=== PATIENT | female | born 1950 | race Caucasian/White ===

== ENCOUNTER 2016-12-02 14:23 | Emergency (ER) | payer OTHER, MEDICARE ==
[2016-12-02 14:51] VITALS: BP 135/81; PULSE 88; RESP 16; TEMP 97.5; O2SAT 97
--- NOTE | 2016-12-02 15:44 | UCPHY ---
H & P Time Seen by Provider: 12/02/16 15:23 Patient Type: Established HPI/ROS: This patient presents with a chief complaint of dizziness which she describes as a spinning sensation. She had 3 episodes yesterday and 2 today none of which lasted more than a minute. There was no associated nausea, vomiting, diplopia or tinnitus. She denies headache and has no symptoms currently. She does have a chronic postnasal drip which has been evaluated by ENT but this is not changed since her symptoms began. She has no URI symptoms and she denies any motor or sensory dysfunction. The patient has an intracranial stimulator for treatment of her Parkinson's disease. REVIEW OF SYSTEMS: Constitutional: Denies fever, malaise, Eyes: No diplopia or blurring ENT: Chronic postnasal drip denies sore throat, ear pain, tinnitus or diminished hearing Respiratory: Not addressed Cardiac: Not addressed Gastrointestinal: Denies nausea and vomiting Genitourinary: Not addressed Musculoskeletal: The patient had a normal carotid Doppler ultrasound done less than 1 month ago which was negative Skin: No rash Neurological: No headache Smoking Status: Never smoked Physical Exam: This is a well-developed well-nourished female who is in no acute distress. She is alert, oriented and lucid. She does have tremors consistent with Parkinson' s disease. GENERAL: Well-appearing, well-nourished and in no acute distress. HEAD: Atraumatic, normocephalic. EYES: Pupils equal round and reactive to light, extraocular movements intact, sclera anicteric, conjunctiva are normal. There is no nystagmus ENT: TMs normal, nares patent, oropharynx clear without exudates. Moist mucous membranes. NECK: Normal range of motion, supple without lymphadenopathy or JVD. HEART: Regular rate and rhythm EXTREMITIES: Normal range of motion, no pitting or edema. No clubbing or cyanosis. NEUROLOGICAL: Cranial nerves II through XII grossly intact. Normal speech, PSYCH: Normal mood, normal affect. SKIN: Warm, dry, normal turgor, no visible rashes or lesions. Constitutional: Initial Vital Signs Temperature (C) 36.4 C 12/02/16 14:47 Heart Rate 88 12/02/16 14:47 Respiratory Rate 16 12/02/16 14:47 Blood Pressure 135/81 H 12/02/16 14:47 O2 Sat (%) 97 12/02/16 14:47 O2 Delivery Mode Room Air Allergies/Adverse Reactions: corn [[place]] Allergy (Mild, Verified 12/02/16 14:51) gluten Allergy (Mild, Verified 12/02/16 14:51) lactose Allergy (Mild, Verified 12/02/16 14:51) Home Medications: Medication Instructions Recorded Carbidopa/Levodopa 25/100Mg 1 tab PO TID 07/24/15 [Sinemet 25/100 MG (*)] LORazepam [Ativan (*)] 1 mg PO QID 07/24/15 Citalopram 07/12/16 Meclizine HCl [Meclizine HCl 25 mg 25 mg PO QID PRN #10 tab 12/02/16 (RX,OTC)] Medical Decision Making Differential Diagnosis: Based on this patient's symptoms and lack of physical findings I believe that the patient has benign positional vertigo. There is nothing to suggest a central cause for her symptoms. I do not feel that laboratory studies or imaging would add additional useful information. Departure - Departure Disposition: Home, Routine, Self-Care Clinical Impression: Benign positional vertigo Condition: Good Instructions: Benign Paroxysmal Positional Vertigo (ED) Additional Instructions: If the symptoms become more frequent or if the duration is prolonged you should be re-evaluated. Referrals: Eneida Ernandez MD [Primary Care Provider] - As per Instructions Prescriptions: Meclizine HCl [Meclizine HCl 25 mg (RX,OTC)] 25 mg PO QID PRN #10 tab PRN Reason: Vertigo - PQRS PQRS Measurement: Not applicable
== END 2016-12-02 15:49 | disposition home or self-care (01) ==
LOC: CED 14:23
DX: H81.10 Benign paroxysmal vertigo, unspecified ear (principal); G20 Parkinson's disease
CPT/HCPCS: 99214-PO; G0463-PO

== ENCOUNTER 2017-06-07 02:51 | Emergency (ER) | payer OTHER, MEDICARE ==
[2017-06-07 03:03] VITALS: RESP 16
[2017-06-07] MEDS ORDERED: KETOROLAC 15 MG/1 ML SDV IVP ONE (03:44)
[2017-06-07] MEDS ORDERED: NS 1,000 ML IV ONE (03:44)
[2017-06-07] MEDS ORDERED: PROMETHAZINE HCL 25 MG/ML INJ IVP ONE (03:45)
--- NOTE | 2017-06-07 04:14 | EDPHY ---
H & P Stated Complaint: confusion Time Seen by Provider: 06/07/17 03:07 HPI/ROS: HPI The patient presents with an episode of confusion and headache which began at 2: 00 a.m. this morning when she got up to go to the bathroom. Her normally assist her because of her Parkinson's disease. He initially noticed that she had difficulty with removing her mouth guard which she sleeps with. Then, he began asking her some basic questions and it seemed that she was disoriented. This was associated with a left-sided headache which is frontal and throbbing in nature. This feels like her previous migraine. Her symptoms lasted for about 30 minutes and then began to resolve on their own. She is feeling better now and her reports that she is oriented and less confused. She is occasionally subheading the word asleep for other words, however does not have any further symptoms. She has a history of atypical migraine, and was admitted in June of 2015 for an identical presentation in which she had a headache associated with confusion. CT scan was performed and was unremarkable. Her symptoms resolved with migraine treatment.. REVIEW OF SYSTEMS Constitutional: No fever, no chills. Eyes: No discharge. ENT: No sore throat. Cardiovascular: No chest pain, no palpitations. Respiratory: No cough, no shortness of breath. Gastrointestinal: No abdominal pain, no vomiting. Genitourinary: No hematuria. Musculoskeletal: No back pain. Skin: No rashes. Neurological: Positive for headache. PMHx: Parkinson's disease with deep brain stimulator in place, history of migraine, Soc Hx: Lives at home with her PHYSICAL General Appearance: Alert, no distress Eyes: Pupils equal and round no pallor or injection ENT, Mouth: Mucous membranes moist Respiratory: There are no retractions, lungs are clear to auscultation Cardiovascular: Regular rate and rhythm Gastrointestinal: Abdomen is soft and non-tender, no masses, bowel sounds normal Neurological: A&O x3, cranial nerves 2-12 intact, 5/5 strength in upper and lower extremities which is symmetric, normal finger to nose testing, normal object naming, recall, speech is fluid Skin: Warm and dry, no rashes Musculoskeletal: Neck is supple non tender Extremities: symmetrical, full range of motion Psychiatric: Patient is oriented X 3, there is no agitation Source: Patient, Old records Exam Limitations: No limitations - Personal History Current Tetanus/Diphtheria Vaccine: No Current Tetanus Diphtheria and Acellular Pertussis (TDAP): No - Medical/Surgical History Hx Asthma: No Hx Chronic Respiratory Disease: No Hx Diabetes: No Hx Cardiac Disease: No Hx Renal Disease: No Hx Cirrhosis: No Hx Alcoholism: No Hx HIV/AIDS: No Hx Splenectomy or Spleen Trauma: No Other PMH: PCP S Daniel. Parkinsons. Deep brain stimulatiion. Anxiety. NO FLu vacc. Tetanus UTD - Social History Smoking Status: Never smoked Constitutional: Initial Vital Signs Temperature (C) 36.8 C 06/07/17 02:59 Heart Rate 92 06/07/17 02:59 Respiratory Rate 16 06/07/17 02:59 Blood Pressure 113/69 06/07/17 02:59 O2 Sat (%) 94 06/07/17 02:59 O2 Delivery Mode Room Air Allergies/Adverse Reactions: corn [[place]] Allergy (Mild, Verified 06/07/17 02:57) gluten Allergy (Mild, Verified 06/07/17 02:57) lactose Allergy (Mild, Verified 06/07/17 02:57) Home Medications: Medication Instructions Recorded Carbidopa/Levodopa 25/100Mg 1 tab PO TID 07/24/15 [Sinemet 25/100 MG (*)] LORazepam [Ativan (*)] 1 mg PO QID 07/24/15 Citalopram 07/12/16 Amantadine 06/07/17 Medical Decision Making Differential Diagnosis: This is a 67-year-old female with Parkinson's disease and history of migraines who presents after waking tonight with a headache and some disorientation which lasted for 30 minutes and is now almost resolved. She is still having a left- sided frontal throbbing headache. I have performed NIH stroke scale and it is 0. She has a history of atypical migraines with identical presentation. She was admitted to the hospital for this in 2014 and had a normal workup for any ischemia. I have considered TIA, however I feel this is unlikely given that she has a concomitant headache which is like her usual migraine. I feel she likely has atypical migraine. In the emergency room she was given IV fluids, Phenergan and Toradol. She had improvement in her headache and symptoms. She had no further confusion or any word-finding difficulties. She would like to be discharged home to rest and I feel this is reasonable. - Data Points Medications Given: Discontinued Medications Sodium Chloride (Ns) 1,000 mls @ 0 mls/hr IV ONCE ONE PRN Reason: Wide Open Stop: 06/07/17 03:45 Last Admin: 06/07/17 03:54 Dose: 1,000 mls Ketorolac Tromethamine (Toradol) 15 mg IVP EDNOW ONE Stop: 06/07/17 03:45 Last Admin: 06/07/17 03:55 Dose: 15 mg Promethazine HCl (Phenergan) 6.25 mg IVP ONCE ONE Stop: 06/07/17 03:46 Last Admin: 06/07/17 03:55 Dose: 6.25 mg Departure - Departure Disposition: Home, Routine, Self-Care Clinical Impression: Atypical migraine, Confusion Condition: Good Instructions: Migraine Headache (ED) Additional Instructions: Please return to the emergency room if your worse in any way. Referrals: Eneida Ernandez MD [Primary Care Provider] - As per Instructions
[2017-06-07 04:30] VITALS: BP 137/76; PULSE 89; TEMP 98.6; O2SAT 92
== END 2017-06-07 04:32 | disposition home or self-care (01) ==
DX: R41.0 Disorientation, unspecified (principal); G43.909 Migraine, unspecified, not intractable, without status migrainosus
CPT/HCPCS: 96374; 96375; 99284; J1885; J2550

== ENCOUNTER → 2018-08-06 | Outpatient (CLI) | payer OTHER, MEDICARE | PROVIDERS: ATTEND Internal Medicine | DX: R13.12 Dysphagia, oropharyngeal phase (principal); G20 Parkinson's disease | CPT/HCPCS: 74230; 92611; G8996; G8997; G8998 ==